=== PATIENT | male | born 1945 | race Caucasian/White ===

== ENCOUNTER → 2019-01-28 | Outpatient (CLI) | payer BC ==
[~2019-01-28] MED LIST: BUDEPRION XL150 MG PO; DILTIAZEM HCL300 MG PO; PRILOSEC 20MG20 MG PO; SIMVASTATIN40 MG PO; TRIAMTERENE/HCT1 TAB PO
== END ==
LOC: ZCOL.LAB 16:43
DX: H60.502 Unspecified acute noninfective otitis externa, left ear (principal)